=== PATIENT | male | born 1980 | race Caucasian/White ===

== ENCOUNTER 2018-02-28 00:13 | Emergency (ER) | payer OTHER | END 2018-02-28 00:42 | disposition home or self-care (01) | LOC: EDH 00:13 | DX: Z02.89 Encounter for other administrative examinations (principal); Z21 Asymptomatic human immunodeficiency virus [HIV] infection status ==

== ENCOUNTER 2025-04-10 16:26 | Emergency (ER) | payer BC ==
[~2025-04-10] VITALS: Ht 195.6 cm; Wt 79.4 kg
--- NOTE | 2025-04-10 16:50 | EKG ---
[facility] Test Date: 2025-04-10 Test Time: 15:28:08 Pat Name: CASSIE THIBODEAUX Department: [facility] Room: Gender: [employer]: [facility] : 1980 Requested By: TATIANA MONSON Order Number: [id number] Reading MD: Jimmie Ventura Measurements Intervals [place] Rate: 90 P: 65 MN: 200 QRS: 106 QRSD: 118 T: -53 QT: 365 QTc: 448 Interpretive Statements Sinus rhythm Probable left atrial enlargement Nonspecific intraventricular conduction delay No previous ECG available for comparison Electronically Signed On 04-11-2025 17:18:39 CDT by Jimmie Ventura Please click the below link to view image of tracing.
[2025-04-10 17:11] LABS: BASOPHILS # (AUTO) 0.02 K/uL (0.00-0.20); BASOPHILS % (AUTO) 0.5 % (0.0-5.0); EOSINOPHILS # (AUTO) 0.17 K/uL (0.00-0.70); EOSINOPHILS % (AUTO) 3.9 % (0.0-8.0); HEMATOCRIT 45.2 % (42-54); IMMATURE GRANULOCYTE ABSOLUTE 0.01 K/uL (0-1); LYMPHOCYTES # (AUTO) 1.7 K/uL (1.0-4.8); LYMPHOCYTES % (AUTO) 38.6 % (21.0-51.0); MEAN CORPUSCULAR HEMOGLOBIN 26.8 pg (27.0-33.0); MEAN CORPUSCULAR HGB CONC 31.9 g/dL (32.0-36.0); MEAN CORPUSCULAR VOLUME 84.2 fL (79-99); MONOCYTES # (AUTO) 0.6 K/uL (0.1-1.0); MONOCYTES % (AUTO) 13.4 % (3.0-13.0); NEUTROPHILS # (AUTO) 1.9 K/uL (1.8-7.7); NEUTROPHILS % (AUTO) 43.4 % (40.0-77.0); PLATELET COUNT (AUTO) 191 K/uL (130-400); RED BLOOD CELL COUNT(AUTO) 5.37 MIL/uL (4.50-6.20); RED CELL DISTRIBUTION WIDTH 14.6 % (11.0-15.5); WHITE BLOOD COUNT (AUTO) 4.3 K/uL (4.8-10.8)
[2025-04-10 17:32] LABS: ALBUMIN 3.4 g/dL (3.5-5.0); BILIRUBIN,DIRECT 0.1 mg/dL (0.0-0.3); BILIRUBIN,TOTAL 0.5 mg/dL (0.2-1.0); TOTAL PROTEIN, SERUM 8.9 g/dL (6.0-8.3)
--- NOTE | 2025-04-10 17:47 | HMCIMG ---
PORTABLE CHEST RADIOGRAPH INDICATION: cp COMPARISON: None FINDINGS: Heart size is normal. The pulmonary vascularity and elyse appear normal. No abnormal pulmonary parenchymal opacity or consolidation identified. No significant pleural effusion noted. No pneumothorax detected. IMPRESSION: No radiographic evidence for any acute cardiopulmonary process.
[2025-04-10] MEDS: furoSEMIDE 40MG VIAL IV ONE (18:22)
[2025-04-10] MEDS ORDERED: FURO20TA6 PO (18:28)
--- NOTE | 2025-04-10 18:29 | ERN ---
ED Note History of Present Illness Stated Complaint: RAPID HEART/ SOB Chief Complaint: Palpitations Time Seen by MD: 16:45 Dictation: 44-year-old male with a history of HIV presenting to the emergency department with palpitations and shortness a breath over the past few weeks worsening with exertion. Had recent diagnosis of heart failure but has not been seen in the clinic by primary to monitor his medications. Does get seen and was broke and reports that he is med compliant with his antivirals over the past few weeks. Allergies: Coded Allergies: No Known Allergies (Unverified Allergy, Unknown, 05/04/19) Past Medical History Past Medical History: Anxiety, CHF, Depression, HIV Surgical History: Other Surgical History Other: RT INGUINAL HERNIA, FACIAL SX Review of System Dictation Constitutional: Negative for fever,chills, and weight loss Eyes: Negative for injury, pain,redness, and discharge ENT: Negative for injury,pain or swelling Cardiovascular: Per HPI Respiratory: Per HPI Abdomen/GI: Negative for abdominal pain, nausea, vomiting, diarrhea, and constipation Back: Negative for injury and pain : Negative for injury, bleeding and discharge MS/Extremity: Negative for injury and deformity Skin: Negative for rash, and discoloration Neuro: Negative for headache, weakness, numbness, tingling, and seizure Psych: Negative for suicide ideation, homicidal ideation, and hallucinations Initial Vital Sign VS Vital Signs Date Time Temp Pulse Resp B/P (MAP) Pulse Ox O2 Delivery O2 Flow Rate FiO2 04/10/25 16:29 98.4 94 18 116/82 99 Room Air 0 04/10/25 17:04 21 Physical Exam Dictation General: awake, alert, NAD Head/Face: Normocephalic, atraumatic Eyes: PERRL, EOMI, vision at baseline ENT: oral cavity clear, TMs clear, no signs of infection Neck: Trachea midline, supple, no nuchal rigidity Cardiovascular: RRR, normal S1/S2, No MRGs, no JVD Respiratory: CTAB, no respiratory distress, No rales or wheezes Abdomen: Soft, non-tender, non-distended, normal bowel sounds, no guarding or rebound. Skin: Warm, dry, normal turgor, no rash MS/Extremity: Pulses equal, no cyanosis, neurovascular intact, FROM Neuro: COAx4, GCS 15, strength 5/5, CN 2-12 intact, normal cerebellar exam, normal gait, Psych: Normal behavior, mood, and affect normal Results (Laboratory/Radiology) Laboratory/Radiology Laboratory Tests Test 04/10/25 16:52 White Blood Count 4.3 K/uL (4.8-10.8) L Red Blood Count 5.37 MIL/uL (4.50-6.20) Hemoglobin 14.4 g/dL (14.0-18.0) Hematocrit 45.2 % (42-54) Mean Corpuscular Volume 84.2 fL (79-99) Mean Corpuscular Hemoglobin 26.8 pg (27.0-33.0) L Mean Corpuscular Hemoglobin Concent 31.9 g/dL (32.0-36.0) L Red Cell Distribution Width 14.6 % (11.0-15.5) Platelet Count 191 K/uL (130-400) Mean Platelet Volume 9.8 fL (7.5-10.5) Immature Granulocyte % (Auto) 0.2 % (0-1) Neutrophils (%) (Auto) 43.4 % (40.0-77.0) Lymphocytes (%) (Auto) 38.6 % (21.0-51.0) Monocytes (%) (Auto) 13.4 % (3.0-13.0) H Eosinophils (%) (Auto) 3.9 % (0.0-8.0) Basophils (%) (Auto) 0.5 % (0.0-5.0) Neutrophils # (Auto) 1.9 K/uL (1.8-7.7) Lymphocytes # (Auto) 1.7 K/uL (1.0-4.8) Monocytes # (Auto) 0.6 K/uL (0.1-1.0) Eosinophils # (Auto) 0.17 K/uL (0.00-0.70) Basophils # (Auto) 0.02 K/uL (0.00-0.20) Absolute Immature Granulocyte (auto 0.01 K/uL (0-1) Nucleated Red Blood Cells 0.0 % (0.0-0.19) Sodium Level 138 mmol/L (136-145) Potassium Level 4.0 mmol/L (3.5-5.1) Chloride Level 103 mmol/L (101-111) Carbon Dioxide Level 34 mmol/L (21-32) H Blood Urea Nitrogen 15 mg/dL (7-18) Creatinine 1.0 mg/dL (0.5-1.3) Glomerular Filtration Rate Calc 95 mL/min (>90) Random Glucose 74 mg/dL (70-105) Total Calcium 8.6 mg/dL (8.5-10.1) Total Bilirubin 0.5 mg/dL (0.2-1.0) Direct Bilirubin 0.1 mg/dL (0.0-0.3) Aspartate Amino Transf (AST/SGOT) 28 U/L (10-37) Alanine Aminotransferase (ALT/SGPT) 32 U/L (12-78) Alkaline Phosphatase 133 U/L (50-136) Total Creatine Kinase 71 U/L (21-232) Troponin I High Sensitivity 17 ng/L (4-75) CB-Gnf-V-Type Natriuretic Peptide 2425 pg/mL (0-125) H Total Protein 8.9 g/dL (6.0-8.3) H Albumin 3.4 g/dL (3.5-5.0) L Labs Reviewed?: Yes EKG: (+) NSR, (+) rhythm, (+) ST depression, (+) nonspecific ST T wave chg, (+) nonspecific ST T wave chg ED Course ED Course Orders Procedure Category Date Status Time 12 Lead Ekg Tracing- EKG 04/10/25 Complete Technical 16:47 Basic Metabolic Panel LAB 04/10/25 Complete 16:47 Cbc With Differential LAB 04/10/25 Complete 16:47 Creatine Kinase, Total LAB 04/10/25 Complete 16:47 Hepatic Function Panel LAB 04/10/25 Complete 16:47 Troponin I High LAB 04/10/25 Complete Sensitivity 16:47 Chest 1vw RAD 04/10/25 Resulted 16:47 Probnp LAB 04/10/25 Complete 16:47 Furosemide 40mg Vial PHA 04/10/25 In Process (Lasix 40mg Vial) 18:30 Current Medications Medications (Trade) Dose Ordered Sig/Bari Route PRN Reason Start Time Stop Time Status Last Admin Dose Admin Furosemide (LASix 40MG VIAL) 40 mg ONCE ONCE IV 04/10/25 18:30 04/10/25 18:31 04/10/25 18:22 Vital Signs Date Time Temp Pulse Resp B/P (MAP) Pulse Ox O2 Delivery O2 Flow Rate FiO2 04/10/25 17:04 82 16 120/90 98 Room Air* 0 21 04/10/25 16:29 98.4 94 18 116/82 99 Room Air 0 HEART Score Response (Comments) Value History: Low suspicion (0) 0 EKG: Significant ST depression 2 Age: < 45yrs (0) 0 Risk Factors: 1-2 risk factors (+1) 1 Initial Troponin: Normal limit (0) 0 HEART Score Risk: Low Risk for MACE (1-3) Total 3 Medical Decision Making MDM MDM: Differential diagnosis: Rationale: Tests considered and ordered secondary to shared decision making include: Previous outside records reviewed: Old ER visits. Risk of complication and/or morbidity or mortality of patient management: None Medications-Per medication reconciliation Need for hospitalization: Patient does not meet criteria for hospitalization. Need for emergency major/minor surgery: No There are no social concerns with this patient. Prescription drug management Prescriptions will include symptomatic care Patient's prior external medical records from other ER visits were reviewed by me as indicated. Prior testing and results from previous visits were reviewed. Prior tests were taken into account with medical decision making and resource utilization, independent historian/historians were used to obtain complete medical history. I independently interpreted the test that were performed, results were reviewed by me and considered findings on radiology if ordered. Medical management and examination interpretation discussions were had by me with other qualified healthcare professionals as indicated for the patient's care. 44-year-old male with chest pain and shortness of breath, PERC negative, heart score three, stable for outpatient follow up no chest pain now, appears to be compensated CHF, elevated BNP no signs with a PE, placed on diuretics and referred to outpatient setting advised to return if worse in any way. DX & DISP Disposition: Discharge Departure Impression: Primary Impression: CHF (congestive heart failure) Additional Impression: Chest pain Condition: Stable Scripts Furosemide (Lasix 20Mg Tab) 20 Mg Tablet 1 TAB PO DAILY for 10 Days, #10 TAB 0 Refills Prov: TATIANA MONSON MD 04/10/25 Referrals: SELF,REFERRAL (PCP) TATIANA MONSON MD Apr 10, 2025 18:29
[2025-04-10 18:44] VITALS: BP 127/85; PULSE 75; RESP 16; TEMP 97.8; O2SAT 97
== END 2025-04-10 18:54 | disposition home or self-care (01) ==
LOC: EDH 16:26
DX: I50.9 Heart failure, unspecified (principal); F41.9 Anxiety disorder, unspecified; F32.A Depression, unspecified
CPT/HCPCS: 99284; 96374; 71045; 82550; 80076; 84484; 80048; 83880; 85025; 36415; 93005; J1938